=== PATIENT | male | born 1970 | race Caucasian/White ===

== ENCOUNTER 2016-06-03 20:58 | Emergency (ER) | payer OTHER ==
[~2016-06-03] VITALS: Ht 175.3 cm; Wt 87.5 kg
[~2016-06-03 20:58] MED LIST: ERGO400C PO
[2016-06-03 21:02] VITALS: Ht 175.3 cm; Wt 87.5 kg
--- OUTSIDE RECORDS SUMMARY | 2016-06-03 21:02 | XMS REPORT | Continuity of Care Document ---
Author Author [facility] Organization [facility] Address Unknown Phone Unavailable Allergies Active Description Code Type Severity Reaction Onset Reported/Identified Relationship to Patient Clinical Status Yes No Known Medication Allergies NKMA N/A N/A 03/12/2014 Medications Problems Procedures Results Encounters ACCT No. Visit Date/Time Discharge Status Pt. Type Provider Facility Loc./Unit Complaint [id number] 03/12/2014 16:17:00 2014 23:59:00 DIS Outpatient Najma Carter [facility] New FLU
--- OUTSIDE RECORDS SUMMARY | 2016-06-03 21:02 | XMS REPORT | Referral Summary ---
Author Organization Unknown Address Unknown Phone Unavailable Care Team Providers Care Cash Application Clerk Name Role Phone DiyessyRavinder Primary Care Physician [phone] Encounter VC Date(s): 03/12/14 - 03/12/14 [facility] Leigh, Daniel, Family Medicine [address] [place] [address] Dr Sanchez [place] [id number] Discharge Diagnosis: Fever Discharge Diagnosis: Acute URI Discharge Diagnosis: Sinusitis Discharge Disposition: Home or Self Care Attending Physician: Najma Carter APRN Admitting Physician: Najma Carter APRN Vital Signs Most recent to 1 oldest [Reference Range]: Temperature Tympanic 37.6 degC [36.6-38.1 degC] (03/12/14 4:21 PM) Blood Pressure 128/86 mmHg [90-140/60-90 mmHg] (03/12/14 4:21 PM) Problem List No data available for this section Allergies, Adverse Reactions, Alerts No Known Medication Allergies Medications promethazine-codeine 6.25 mg-10 mg/5 mL oral syrup 5 mL, Oral, q4hr, as needed for cough, N. Rodrigo's, # 120 mL, 0 Refill(s) Special Instructions: N. Rodrigo's Start Date: 03/12/14 Status: Ordered Zithromax Z-Mark 250 mg oral tablet 1 packets, Oral, Daily, as directed on package labeling, X 5 days, # 6 tabs, 0 Refill(s), Pharmacy: [facility] #[id number], 1 packets Oral Daily,x5 days, Instr:as directed on package labeling Special Instructions: as directed on package labeling Start Date: 03/12/14 Stop Date: 03/17/14 Status: Ordered Results No data available for this section Immunizations No data available for this section Procedures No data available for this section Social History No data available for this section Assessment and Plan Extracted from: Title: Ambulatory Patient Education Author: Najma Carter QUALITY OFFICER Date: Allergy Sinusitis Sinusitis is redness, soreness, and swelling (inflammation ) of the paranasal sinuses. Paranasal sinuses are air pockets within the bones of your face ( beneath the eyes, the middle of the forehead, or above the eyes). In healthy paranasal sinuses, mucus is able to drain out, and air is able to circulate through them by way of your nose. However, when your paranasal sinuses are inflamed, mucus and air can become trapped. This can allow bacteria and other germs to grow and cause infection. Sinusitis can develop quickly and last only a short time (acute ) or continue over a long period (chronic ). Sinusitis that lasts for more than 12 weeks is considered chronic. CAUSES Causes of sinusitis include: Allergies. Structural abnormalities, such as displacement of the cartilage that separates your nostrils (deviated septum ), which can decrease the air flow through your nose and sinuses and affect sinus drainage. Functional abnormalities, such as when the small hairs (cilia ) that line your sinuses and help remove mucus do not work properly or are not present. SYMPTOMS Symptoms of acute and chronic sinusitis are the same. The primary symptoms are pain and pressure around the affected sinuses. Other symptoms include: Upper toothache. Earache. Headache. Bad breath. Decreased sense of smell and taste. A cough, which worsens when you are lying flat. Fatigue. Fever. Thick drainage from your nose, which often is green and may contain pus ( purulent ). Swelling and warmth over the affected sinuses. DIAGNOSIS Your caregiver will perform a physical exam. During the exam, your caregiver may : Look in your nose for signs of abnormal growths in your nostrils (nasal polyps) . Tap over the affected sinus to check for signs of infection. View the inside of your sinuses (endoscopy ) with a special imaging device with a light attached (endoscope ), which is inserted into your sinuses. If your caregiver suspects that you have chronic sinusitis, one or more of the following tests may be recommended: Allergy tests. Nasal cultureA sample of mucus is taken from your nose and sent to a lab and screened for bacteria. Nasal cytologyA sample of mucus is taken from your nose and examined by your caregiver to determine if your sinusitis is related to an allergy. TREATMENT Most cases of acute sinusitis are related to a viral infection and will resolve on their own within 10 days. Sometimes medicines are prescribed to help relieve symptoms (pain medicine, decongestants, nasal steroid sprays, or saline sprays) . However, for sinusitis related to a bacterial infection, your caregiver will prescribe antibiotic medicines. These are medicines that will help kill the bacteria causing the infection. Rarely, sinusitis is caused by a fungal infection. In theses cases, your caregiver will prescribe antifungal medicine. For some cases of chronic sinusitis, surgery is needed. Generally, these are cases in which sinusitis recurs more than 3 times per year, despite other treatments. HOME CARE INSTRUCTIONS Drink plenty of water. Water helps thin the mucus so your sinuses can drain more easily. Use a humidifier. Inhale steam 3 to 4 times a day (for example, sit in the bathroom with the shower running). Apply a warm, moist washcloth to your face 3 to 4 times a day, or as directed by your caregiver. Use saline nasal sprays to help moisten and clean your sinuses. Take [id number] or prescription medicines for pain, discomfort, or fever only as directed by your caregiver. SEEK IMMEDIATE MEDICAL CARE IF: You have increasing pain or severe headaches. You have nausea, vomiting, or drowsiness. You have swelling around your face. You have vision problems. You have a stiff neck. You have difficulty breathing. MAKE SURE YOU: Understand these instructions. Will watch your condition. Will get help right away if you are not doing well or get worse. Document Released: 01/25/2006 Document Revised: 04/18/2012 Document Reviewed: [facility] Patient Information 2014 [facility]. Family Medicine Fever, Adult A fever is a higher than normal body temperature. In an adult, an oral temperature around 98.6 F (37 C) is considered normal. A temperature of 100.4 F (38 C) or higher is generally considered a fever. Mild or moderate fevers generally have no long-term effects and often do not require treatment. Extreme fever (greater than or equal to 106 F or 41.1 C) can cause seizures. The sweating that may occur with repeated or prolonged fever may cause dehydration. Elderly people can develop confusion during a fever. A measured temperature can vary with: Age. Time of day. Method of measurement (mouth, underarm, rectal, or ear). The fever is confirmed by taking a temperature with a thermometer. Temperatures can be taken different ways. Some methods are accurate and some are not. An oral temperature is used most commonly. Electronic thermometers are fast and accurate. An ear temperature will only be accurate if the thermometer is positioned as recommended by the logging shovel operator. A rectal temperature is accurate and done for those adults who have a condition where an oral temperature cannot be taken. An underarm (axillary ) temperature is not accurate and not recommended. Fever is a symptom, not a disease. CAUSES Infections commonly cause fever. Some noninfectious causes for fever include: Some arthritis conditions. Some thyroid or adrenal gland conditions. Some immune system conditions. Some types of cancer. A medicine reaction. High doses of certain street drugs such as methamphetamine. Dehydration. Exposure to high outside or room temperatures. Occasionally, the source of a fever cannot be determined. This is sometimes called a "fever of unknown origin" (FUO). Some situations may lead to a temporary rise in body temperature that may go away on its own. Examples are: Childbirth. Surgery. Intense exercise. HOME CARE INSTRUCTIONS Take appropriate medicines for fever. Follow dosing instructions carefully. If you use acetaminophen to reduce the fever, be careful to avoid taking other medicines that also contain acetaminophen. Do not take aspirin for a fever if you are younger than age 19. There is an association with Dixie's syndrome. Dixie's syndrome is a rare but potentially deadly disease. If an infection is present and antibiotics have been prescribed, take them as directed. Finish them even if you start to feel better. Rest as needed. Maintain an adequate fluid intake. To prevent dehydration during an illness with prolonged or recurrent fever, you may need to drink extra fluid. Drink enough fluids to keep your urine clear or pale yellow. Sponging or bathing with room temperature water may help reduce body temperature. Do not use ice water or alcohol sponge baths. Dress comfortably, but do not over-bundle. SEEK MEDICAL CARE IF: You are unable to keep fluids down. You develop vomiting or diarrhea. You are not feeling at least partly better after 3 days. You develop new symptoms or problems. SEEK IMMEDIATE MEDICAL CARE IF: You have shortness of breath or trouble breathing. You develop excessive weakness. You are dizzy or you faint. You are extremely thirsty or you are making little or no urine. You develop new pain that was not there before (such as in the head, neck, chest, back, or abdomen). You have persistant vomiting and diarrhea for more than 1 to 2 days. You develop a stiff neck or your eyes become sensitive to light. You develop a skin rash. You have a fever or persistent symptoms for more than 2 to 3 days. You have a fever and your symptoms suddenly get worse. MAKE SURE YOU: Understand these instructions. Will watch your condition. Will get help right away if you are not doing well or get worse. Document Released: 07/21/2001 Document Revised: 04/18/2012 Document Reviewed: [facility] Patient Information 2014 [employer]. Upper Respiratory Infection, Adult An upper respiratory infection (URI) is also sometimes known as the common cold. The upper respiratory tract includes the nose, sinuses, throat, trachea, and bronchi. Bronchi are the airways leading to the lungs. Most people improve within 1 week, but symptoms can last up to 2 weeks. A residual cough may last even longer. CAUSES Many different viruses can infect the tissues lining the upper respiratory tract. The tissues become irritated and inflamed and often become very moist. Mucus production is also common. A cold is contagious. You can easily spread the virus to others by oral contact. This includes kissing, sharing a glass, coughing, or sneezing. Touching your mouth or nose and then touching a surface, which is then touched by another person, can also spread the virus. SYMPTOMS Symptoms typically develop 1 to 3 days after you come in contact with a cold virus. Symptoms vary from person to person. They may include: Runny nose. Sneezing. Nasal congestion. Sinus irritation. Sore throat. Loss of voice (laryngitis ). Cough. Fatigue. Muscle aches. Loss of appetite. Headache. Low-grade fever. DIAGNOSIS You might diagnose your own cold based on familiar symptoms, since most people get a cold 2 to 3 times a year. Your caregiver can confirm this based on your exam. Most importantly, your caregiver can check that your symptoms are not due to another disease such as strep throat, sinusitis, pneumonia, asthma, or epiglottitis. Blood tests, throat tests, and X-rays are not necessary to diagnose a common cold, but they may sometimes be helpful in excluding other more serious diseases. Your caregiver will decide if any further tests are required. RISKS AND COMPLICATIONS You may be at risk for a more severe case of the common cold if you smoke cigarettes, have chronic heart disease (such as heart failure) or lung disease ( such as asthma), or if you have a weakened immune system. The very young and very old are also at risk for more serious infections. Bacterial sinusitis, middle ear infections, and bacterial pneumonia can complicate the common cold. The common cold can worsen asthma and chronic obstructive pulmonary disease ( COPD). Sometimes, these complications can require emergency medical care and may be life-threatening. PREVENTION The best way to protect against getting a cold is to practice good hygiene. Avoid oral or hand contact with people with cold symptoms. Wash your hands often if contact occurs. There is no clear evidence that vitamin C, vitamin E, echinacea, or exercise reduces the chance of developing a cold. However, it is always recommended to get plenty of rest and practice good nutrition. TREATMENT Treatment is directed at relieving symptoms. There is no cure. Antibiotics are not effective, because the infection is caused by a virus, not by bacteria. Treatment may include: Increased fluid intake. Sports drinks offer valuable electrolytes, sugars, and fluids. Breathing heated mist or steam (vaporizer or shower). Eating chicken soup or other clear broths, and maintaining good nutrition. Getting plenty of rest. Using gargles or lozenges for comfort. Controlling fevers with ibuprofen or acetaminophen as directed by your caregiver. Increasing usage of your inhaler if you have asthma. Zinc gel and zinc lozenges, taken in the first 24 hours of the common cold, can shorten the duration and lessen the severity of symptoms. Pain medicines may help with fever, muscle aches, and throat pain. A variety of non-prescription medicines are available to treat congestion and runny nose. Your caregiver can make recommendations and may suggest nasal or lung inhalers for other symptoms. HOME CARE INSTRUCTIONS Only take snlk-xml-kclhusy or prescription medicines for pain, discomfort, or fever as directed by your caregiver. Use a warm mist humidifier or inhale steam from a shower to increase air moisture. This may keep secretions moist and make it easier to breathe. Drink enough water and fluids to keep your urine clear or pale yellow. Rest as needed. Return to work when your temperature has returned to normal or as your caregiver advises. You may need to stay home longer to avoid infecting others. You can also use a face mask and careful hand washing to prevent spread of the virus. SEEK MEDICAL CARE IF: After the first few days, you feel you are getting worse rather than better. You need your caregiver's advice about medicines to control symptoms. You develop chills, worsening shortness of breath, or brown or red sputum. These may be signs of pneumonia. You develop yellow or brown nasal discharge or pain in the face, especially when you bend forward. These may be signs of sinusitis. You develop a fever, swollen neck glands, pain with swallowing, or white areas in the back of your throat. These may be signs of strep throat. SEEK IMMEDIATE MEDICAL CARE IF: You have a fever. You develop severe or persistent headache, ear pain, sinus pain, or chest pain. You develop wheezing, a prolonged cough, cough up blood, or have a change in your usual mucus (if you have chronic lung disease). You develop sore muscles or a stiff neck. Document Released: 07/21/2001 Document Revised: 04/18/2012 Document Reviewed: [facility] Patient Information 2014 [employer]. No follow up information was provided. Extracted from: Title: Office Visit Note Author: Najma Carter APRN Date: 03/12/14 Assessment/Plan Acute URI Rx to be taken as prescribed. Mucinex of choice, per package directions. RTC/IC/ER if symptoms not improving or worsen. Ordered: Office Visit Level 3 Est 64488 Fever OTC pain reliever/fever oracle wms consultant of choice, per package directions. Ordered: Office Visit Level 3 Est 79009 Sinusitis Saline nasal washes am and pm. Saline Nasal spray or gel as needed. Increase oral fluids and environmental humidity. Ordered: Office Visit Level 3 Est [id number] Orders: azithromycin, 1 packets, Oral, Daily, as directed on package labeling , X 5 days, # 6 tabs, 0 Refill(s), Pharmacy: [facility] #[id number], 1 packets Oral Daily,x5 days,Instr:as directed on package labeling promethazine-codeine, 5 mL, Oral, q4hr, as needed for cough, N. Rodrigo's, # 120 mL, 0 Refill(s)
[2016-06-03] MEDS ORDERED: NORMAL SALINE 1,000 ML IV ONE (21:12)
--- NOTE | 2016-06-03 21:12 | NUR ---
PROVIDER DR AGUILAR IN ROOM W/ PT.
--- NOTE | 2016-06-03 21:20 | NUR ---
LAB LAB IN KIT FOR BLOOD IV ALREADY EST BY PRIOR FACILITY
--- OUTSIDE RECORDS SUMMARY | 2016-06-03 21:23 | XMS REPORT | Continuity of Care Document ---
Author Author [facility] Organization [facility] Address Unknown Phone Unavailable Allergies Active Description Code Type Severity Reaction Onset Reported/Identified Relationship to Patient Clinical Status Yes No Known Medication Allergies NKMA N/A N/A 03/12/2014 Medications Problems Procedures Results Encounters ACCT No. Visit Date/Time Discharge Status Pt. Type Provider Facility Loc./Unit Complaint [id number] 03/12/2014 16:17:00 2014 23:59:00 DIS Outpatient Najma Carter [facility] New FLU
[2016-06-03 21:25] LABS: BASOPHILS % (AUTO) 0.3 % (0-2); EOSINOPHILS # (AUTO) 0.1 T/MM3 (0-0.5); HCT - HEMATOCRIT 41.9 % (41-53); HGB - HEMOGLOBIN 14.5 GM/DL (13.5-17.5); IMMATURE GRANULOCYTE # (AUTO) 0.05 T/MM3 (0.00-0.03); IMMATURE GRANULOCYTE % (AUTO) 0.4 % (0.0-0.5); LYMPHOCYTES # (AUTO) 1.6 T/MM3 (1-4.8); LYMPHOCYTES % (AUTO) 11.7 % (23-45); MEAN CORPUSCULAR HGB 31.1 UUG (26-34); MEAN CORPUSCULAR HGB CONC(MCHC 34.6 GM/DL (31-37); MEAN CORPUSCULAR VOLUME 89.9 UM3 (80-100); MEAN PLATELET VOLUME 9.8 UM3 (9.4-12.4); MONOCYTES % (AUTO) 7.2 % (0-9.0); NEUTROPHILS #(AUTO)-ABSOLUTE 10.5 T/MM3 (1.8-7.7); NEUTROPHILS % (AUTO) 79.4 % (33-66); RED BLOOD COUNT 4.66 M/MM3 (4.50-5.90); WBC - WHITE BLOOD COUNT 13.2 T/MM3 (4.5-11.0)
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
[2016-06-03 21:35] LABS: ALBUMIN 4.1 G/DL (3.5-5.0); ALBUMIN/GLOBULIN RATIO 1.4 RATIO (1.1-2.2); ALKALINE PHOSPHATASE 67 U/L (38-126); ALT (SGPT) 56 U/L (21-72); ANION GAP 13 MEQ/L (5-15); AST (SGOT) 84 U/L (17-59); BUN/CREATININE RATIO 18 RATIO (6-26); CHLORIDE 103 MEQ/L (98-107); CO2 - CARBON DIOXIDE 25 MEQ/L (22-30); GLOMERULAR FILTRATION RATE 81; GLUCOSE 115 MG/DL (75-110); SODIUM 141 MEQ/L (134-144)
--- NOTE | 2016-06-03 21:50 | NUR ---
REPORT REPORT GIVEN TO [facility] TRAUMA STAFF W/O CHANGE
[2016-06-03 21:58] VITALS: BP 153/95; PULSE 87; TEMP 97.4; O2SAT 97
[2016-06-03 22:11] VITALS: RESP 18
[2016-06-03] MEDS ORDERED: MORPHINE SULFATE 2 MG SYRINGE IV ONE (22:15)
--- NOTE | 2016-06-03 22:15 | NUR ---
DEPART PT LEFT ER ALERT VS CHARTED IN NO ACUTE DISTRESS W/ DAMON RELIVED 04/17 PRIOR TO XPORT PT PACKAGED ON COT SUSPINE ON ZEINA BUNCH MAKER W/ GALI SPLINT NEUROVASCULARS X1 PRE XPORT, W/ IV NS 125/HR AND NO ACUTE DISTRESS AND PT CARE XFERED TO [facility] W/O CHANGE.
== END 2016-06-03 22:15 | disposition short-term general hospital (02) ==
LOC: ED 20:58
DX: S32.422A Displaced fracture of posterior wall of left acetabulum, initial encounter for closed fracture (principal); S73.015A Posterior dislocation of left hip, initial encounter; V29.9XXA Motorcycle rider (driver) (passenger) injured in unspecified traffic accident, initial encounter; Y93.89 Activity, other specified; Y92.89 Other specified places as the place of occurrence of the external cause; Y99.8 Other external cause status
CPT/HCPCS: 36415; 80053; 84484; 85025; 96374; 99285; J7030

== ENCOUNTER 2016-06-13 18:26 | Emergency (ER) | payer OTHER ==
[~2016-06-13] VITALS: Ht 172.7 cm; Wt 81.2 kg
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
--- OUTSIDE RECORDS SUMMARY | 2016-06-13 18:30 | XMS REPORT | Continuity of Care Document ---
Author Author [facility] Organization [facility] Address Unknown Phone Unavailable Allergies Active Description Code Type Severity Reaction Onset Reported/Identified Relationship to Patient Clinical Status Yes No Known Medication Allergies NKMA N/A N/A 03/12/2014 Medications Problems Procedures Results Encounters ACCT No. Visit Date/Time Discharge Status Pt. Type Provider Facility Loc./Unit Complaint [id number] 03/12/2014 16:17:00 2014 23:59:00 DIS Outpatient Najma Carter [facility] FLU
[2016-06-13 18:35] VITALS: Ht 172.7 cm; Wt 81.2 kg
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
--- NOTE | 2016-06-13 19:07 | NUR ---
PROVIDER Ellen MYRICK APRN AT BEDSIDE FOR EXAM.
[2016-06-13] MEDS ORDERED: HYDROMORPHONE 2mg/ml INJECTION IV ONE (19:15)
[2016-06-13] MEDS ORDERED: ONDANSETRON 4mg/2ml INJECTION IV ONE (19:15)
[2016-06-13] MEDS ORDERED: DIME50TA PO (19:28)
[2016-06-13] MEDS ORDERED: HYDR-347 PO (19:28)
--- NOTE | 2016-06-13 19:31 | NUR ---
MED/IV REFUSAL PT REFUSES PAIN MEDIATION. STATES "DO I HAVE TO BE PUMPED FULL OF MEDICATIONS? I FEEL DROWSY ENOUGH FROM MY CURRENT MEDS AT HOME, AND MY HEADACHE REALLY ISN'T ALL THAT BAD." PROVIDER NOTIFIED. ORDERS REC'D TO HOLD ON IVL AT THIS TIME.
--- NOTE | 2016-06-13 19:43 | NUR ---
LAB AT BEDSIDE FOR BLOOD DRAW.
[2016-06-13 19:55] LABS: BASOPHILS % (AUTO) 0.4 % (0-2); EOSINOPHILS # (AUTO) 0.1 T/MM3 (0-0.5); HCT - HEMATOCRIT 37.3 % (41-53); HGB - HEMOGLOBIN 12.6 GM/DL (13.5-17.5); IMMATURE GRANULOCYTE # (AUTO) 0.03 T/MM3 (0.00-0.03); IMMATURE GRANULOCYTE % (AUTO) 0.3 % (0.0-0.5); LYMPHOCYTES # (AUTO) 1.4 T/MM3 (1-4.8); LYMPHOCYTES % (AUTO) 13.9 % (23-45); MEAN CORPUSCULAR HGB CONC(MCHC 33.8 GM/DL (31-37); MEAN CORPUSCULAR VOLUME 91.6 UM3 (80-100); MEAN PLATELET VOLUME 9.4 UM3 (9.4-12.4); MONOCYTES # (AUTO) 0.6 T/MM3 (0-0.8); MONOCYTES % (AUTO) 6.4 % (0-9.0); NEUTROPHILS #(AUTO)-ABSOLUTE 7.7 T/MM3 (1.8-7.7); RED BLOOD COUNT 4.07 M/MM3 (4.50-5.90); WBC - WHITE BLOOD COUNT 9.9 T/MM3 (4.5-11.0)
--- OUTSIDE RECORDS SUMMARY | 2016-06-13 19:59 | XMS REPORT | Continuity of Care Document ---
[...] Status Pt. Type Provider Facility Loc./Unit Complaint [id number] 03/12/2014 16:17:00 2014 23:59:00 DIS Outpatient Najma Carter [facility] FLU
--- NOTE | 2016-06-13 20:02 | NUR ---
CT PT TO CT AT THIS TIME.
[2016-06-13 20:07] LABS: ALBUMIN 4.2 G/DL (3.5-5.0); ALBUMIN/GLOBULIN RATIO 1.3 RATIO (1.1-2.2); ALKALINE PHOSPHATASE 87 U/L (38-126); ALT (SGPT) 116 U/L (21-72); ANION GAP 14 MEQ/L (5-15); AST (SGOT) 29 U/L (17-59); BUN/CREATININE RATIO 19 RATIO (6-26); CALCIUM 9.2 MG/DL (8.4-10.2); CHLORIDE 104 MEQ/L (98-107); CO2 - CARBON DIOXIDE 26 MEQ/L (22-30); CREATININE 0.9 MG/DL (0.8-1.5); GLOMERULAR FILTRATION RATE 92; GLUCOSE 116 MG/DL (75-110); POTASSIUM 4.3 MEQ/L (3.6-5); SODIUM 144 MEQ/L (134-144); TOTAL PROTEIN 7.4 G/DL (6.3-8.2)
[2016-06-13 20:08] LABS: C-REACTIVE PROTEIN 43.6 MG/L (0-9)
--- NOTE | 2016-06-13 20:18 | NUR ---
RETURN PT RETURNED FROM CT AT THIS TIME.
--- NOTE | 2016-06-13 20:39 | NUR ---
PROVIDER Ellen MYRICK APRN AT BEDSIDE TO SPEAK WITH PT.
--- NOTE | 2016-06-13 20:45 | NUR ---
ACTIVITY PT AMBULATORY TO BR WITH STEADY GAIT USING CRUTCHES. TOLERATES ACTIVITY WELL.
[2016-06-13] MEDS ORDERED: SALINE FLUSH 10ml SYRINGE ONE (21:05)
[2016-06-13] MEDS ORDERED: IOHEXOL 350 MG/ML 75ml INJECTION ONE (21:05)
[2016-06-13] MEDS ORDERED: NORMAL SALINE 100 ML ONE (21:05)
--- NOTE | 2016-06-13 21:20 | NUR ---
CT PT TO CT AT THIS TIME.
--- NOTE | 2016-06-13 21:37 | NUR ---
RETURN PT RETURNED FROM CT AT THIS TIME.
[2016-06-13] MEDS ORDERED: RIVA10TA PO (21:48)
[2016-06-13] MEDS ORDERED: ORPHENADRINE 60mg/2ml INJECTION IV ONE (22:30)
--- NOTE | 2016-06-13 22:49 | NUR ---
Norflex One time dose of Norflex admin per orders. Side effects discussed with pt.
[2016-06-13] MEDS ORDERED: OXYC5CAP3 PO (22:58)
--- NOTE | 2016-06-13 23:12 | NUR ---
STATUS PT REPORTS HE IS MORE RELAXED STATES THE NECK TIGHTNESS IS MUCH BETTER, BUT HE STILL HAS THE PRESSURE BEHIND HIS LEFT EYE. RATES HIS PAIN 4-5/10
[2016-06-13] MEDS ORDERED: BACLOFEN 10 MG TABLET #3 (PrePack) SENT HOME ONE (23:15)
--- NOTE | 2016-06-13 23:34 | NUR ---
IVL IVL DC'D WITH CATH INTACT DRSG APPLIED TO IV SITE PT HERIBERTO WELL
--- NOTE | 2016-06-13 23:36 | NUR ---
INSTRUCTIONS DISMISSAL AND MEDICATION INSTRUCTIONS GIVEN TO PT DISP PREPACK OF BACLOFEN WITH INSTRUCTIONS RX GIVEN FOR OXYCODONE WITH INSTRUCTIONS PT HAS FOLLOW-UP APPT WITH PCP ON WEDNESDAY ALREADY PT VERBALIZED UNDERSTANDING OF ALL
[2016-06-13 23:39] VITALS: BP 148/78; PULSE 74; RESP 16; TEMP 98.4; O2SAT 96
--- NOTE | 2016-06-13 23:39 | NUR ---
DISMISS PT DISMISSED PER W/C WITH SPOUSE ESCORTED TO CAR BY RN
--- NOTE | 2016-06-14 08:21 | DI ---
Indication: ITS.REASON: severe right sided BARBOSA PROCEDURE: CTA HEAD and neck W/WO CONTRAST: Encounter: Initial Comparison: CT Head: Axial images were obtained through the head without and with intravenous contrast. CTA: Angiographic phase axial images were acquired from the aortic arch through the entire head following intravenous contrast administration. Multiplanar 2-D reconstructions and maximum intensity projection images were produced for additional assessment. 3-D volume rendered images of the [place] were also produced by the technologist. Automated Exposure Control and Iterative Reconstruction dose reducing techniques were utilized. Contrast: Omnipaque 350 75mL Findings: CT head without and with contrast: The ventricles are of normal size, shape, and contour for the patient's age. The brainstem, cerebellum, and cerebral hemispheres, have a normal morphology and CT attenuation. No hemorrhage, mass effect, mass lesions, or edema is evident. No areas of abnormal enhancement are seen. The visualized portions of the skull base, sinuses, and calvarium demonstrate no abnormality. CTA head with intravenous contrast: The distal cervical, petrous, cavernous, and supraclinoid segments of the internal carotid arteries are widely patent without significant stenosis or other vascular abnormalities. The anterior, middle, and posterior cerebral arteries are also widely patent without significant stenosis or occlusion. No aneurysms, vascular malformations, flow-limiting stenoses, or other arterial abnormality are evident. The visualized portion of the dural sinuses and cortical veins are also well seen and show no definite stenosis or occlusion. CTA neck with intravenous contrast: The aortic arch, brachiocephalic artery, bilateral subclavian arteries, bilateral common carotid arteries, bilateral vertebral arteries, and bilateral internal carotid arteries are widely patent without significant stenosis or other vascular abnormality. The carotid bifurcations are widely patent without significant stenosis or occlusion. Impression: 1. CT head: Unremarkable head CT, both before and after contrast. 2. CTA head: No aneurysms, vascular malformations, or flow limiting stenoses. 3. CTA neck: No flow limiting stenosis of the carotids. No stenosis by NASCET criteria. There is a preliminary report by [employer]. .
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
--- NOTE | 2016-06-15 13:01 | DI ---
Indication: ITS.REASON: severe right sided BARBOSA PROCEDURE: CTA HEAD and neck W/WO CONTRAST: Encounter: Initial Comparison: CT Head: Axial images were obtained through the head without and with intravenous contrast. CTA: Angiographic phase axial images were acquired from the aortic arch through the entire head following intravenous contrast administration. Multiplanar 2-D reconstructions and maximum intensity projection images were produced for additional assessment. 3-D volume rendered images of the [place] were also produced by the technologist. Automated Exposure Control and Iterative Reconstruction dose reducing techniques were utilized. Contrast: Omnipaque 350 75mL Findings: CT head without and with contrast: The ventricles are of normal size, shape, and contour for the patient's age. The brainstem, cerebellum, and cerebral hemispheres, have a normal morphology and CT attenuation. No hemorrhage, mass effect, mass lesions, or edema is evident. No areas of abnormal enhancement are seen. The visualized portions of the skull base, sinuses, and calvarium demonstrate no abnormality. CTA head with intravenous contrast: The distal cervical, petrous, cavernous, and supraclinoid segments of the internal carotid arteries are widely patent without significant stenosis or other vascular abnormalities. The anterior, middle, and posterior cerebral arteries are also widely patent without significant stenosis or occlusion. No aneurysms, vascular malformations, flow-limiting stenoses, or other arterial abnormality are evident. The visualized portion of the dural sinuses and cortical veins are also well seen and show no definite stenosis or occlusion. CTA neck with intravenous contrast: The aortic arch, brachiocephalic artery, bilateral subclavian arteries, bilateral common carotid arteries, bilateral vertebral arteries, and bilateral internal carotid arteries are widely patent without significant stenosis or other vascular abnormality. The carotid bifurcations are widely patent without significant stenosis or occlusion. Impression: 1. CT head: Unremarkable head CT, both before and after contrast. 2. CTA head: No aneurysms, vascular malformations, or flow limiting stenoses. 3. CTA neck: No flow limiting stenosis of the carotids. No stenosis by NASCET criteria. There is a preliminary report by [employer]. .
== END 2016-06-13 23:39 | disposition home or self-care (01) ==
LOC: ED 18:26
DX: R51 Headache (principal); M54.2 Cervicalgia; M62.838 Other muscle spasm; V29.9XXA Motorcycle rider (driver) (passenger) injured in unspecified traffic accident, initial encounter; Y93.89 Activity, other specified; Y92.89 Other specified places as the place of occurrence of the external cause; Y99.8 Other external cause status
CPT/HCPCS: 36415; 70450; 70496; 70498; 80053; 85025; 86140; 96374; 96375; 99284; J1170; J2360; J2405; J7050; Q9967